=== PATIENT | male | born 1955 ===

== ENCOUNTER 2023-09-08 06:39 | Day surgery (SDC) | payer OTHER ==
[2023-09-08] MEDS ORDERED: MIDAZOLAM HCL 2 MG/2 ML VIAL IV ONE (10:00)
[2023-09-08] MEDS ORDERED: fentaNYL CITRATE 50 MCG/ML AMPUL IV PUSH ONE (10:00)
== END 2023-09-08 11:10 | disposition home or self-care (01) ==
LOC: AMB-ENDOS 06:39
PROVIDERS: ATTEND Colon & Rectal Surgery
DX: K63.5 Polyp of colon (principal); K57.30 Diverticulosis of large intestine without perforation or abscess without bleeding; Z88.2 Allergy status to sulfonamides